=== PATIENT | female | born 1995 | race African-American/Black ===

== ENCOUNTER 2021-10-13 14:47 | Emergency (ER) | payer SELFPAY ==
[~2021-10-13] VITALS: Ht 157.5 cm; Wt 90.0 kg
[2021-10-13 15:46] VITALS: BP 156/89
[2021-10-13] MEDS ORDERED: diphenhydrAMINE HCL 25 MG CAPSULE PO ONE (17:00)
[2021-10-13] MEDS ORDERED: KETOROLAC 60 MG/2 ML VIAL. IM ONE (17:00)
[2021-10-13] MEDS ORDERED: predniSONE 10 MG TABLET PO ONE (17:00)
[2021-10-13] MEDS ORDERED: PROCHLORPERAZINE 10 MG/2 ML VIAL. IM ONE (17:00)
[2021-10-13] MEDS ORDERED: SUMA50TA3 PO (17:09)
[2021-10-13] MEDS ORDERED: ONDA4TAB12 PO (17:09)
--- NOTE | 2021-10-13 17:09 | PHYS DOC ---
Past Medical History Past Medical History: Migraines Past Surgical History: No Surgical History General Adult EDM: Chief Complaint: HEADACHE HPI: HPI: Patient is a 25 year old female with history of migraine headaches presenting to the ED today complaining of 7 out of 10 generalized migraine headache with nausea, symptoms began 4 days ago. Patient denies this being the worst headache in her life. She states her symptoms are consistent with her regular migraines. She states she has tried [id number] remedies including ibuprofen, naproxen, Tylenol and Benadryl with no relief. Review of Systems: Review of Systems: Constitutional: Denies fever or chills. [] Eyes: Denies change in visual acuity. [] HENT: Denies nasal congestion or sore throat. [] Respiratory: Denies cough or shortness of breath. [] Cardiovascular: Denies chest pain or edema. [] GI: Reports nausea. Denies abdominal pain, vomiting, bloody stools or diarrhea. [] : Denies dysuria. [] Musculoskeletal: Denies back pain or joint pain. [] Integument: Denies rash. [] Neurologic: Reports migraine headache, denies focal weakness or sensory changes. [] . [] Psychiatric: Denies depression or anxiety. [] Heart Score: C/O Chest Pain: N/A Risk Factors: Risk Factors: DM, Current or recent (<one month) smoker, HTN, HLP, family history of CAD, obesity. Risk Scores: Score 0 - 3: 2.5% MACE over next 6 weeks - Discharge Home Score 4 - 6: 20.3% MACE over next 6 weeks - Admit for Clinical Observation Score 7 - 10: 72.7% MACE over next 6 weeks - Early Invasive Strategies Current Medications: Current Medications Medications (Trade) Dose Ordered Sig/Amor Start Time Stop Time Status Last Admin Dose Admin Diphenhydramine HCl (Benadryl) 25 mg 1X ONCE 10/13/21 17:00 10/13/21 17:01 DC 10/13/21 16:45 25 MG Ketorolac Tromethamine (Toradol Im) 60 mg 1X ONCE 10/13/21 17:00 10/13/21 17:01 DC 10/13/21 16:45 60 MG Prednisone (Prednisone) 50 mg 1X ONCE 10/13/21 17:00 10/13/21 17:01 DC 10/13/21 16:45 50 MG Prochlorperazine Edisylate (Compazine) 10 mg 1X ONCE 10/13/21 17:00 10/13/21 17:01 DC 10/13/21 16:45 10 MG Allergies: Allergies: Allergies Coded Allergies Type Severity Reaction Last Updated Verified Penicillins Allergy Intermediate Unknown 10/13/21 Yes shellfish derived Allergy Intermediate Unknown 10/13/21 Yes Physical Exam: PE: Constitutional: Well developed, well nourished, no acute distress, non-toxic appearance. [] HENT: Normocephalic, atraumatic, bilateral external ears normal, oropharynx moist, no oral exudates, nose normal. [] Eyes: PERRLA, EOMI, conjunctiva normal, no discharge. [] Neck: Normal range of motion, no tenderness, supple, no stridor. [] Cardiovascular:Heart rate regular rhythm, no murmur [] Lungs & Thorax: Bilateral breath sounds clear to auscultation [] Abdomen: Bowel sounds normal, soft, no tenderness, no masses, no pulsatile masses. [] Skin: Warm, dry, no erythema, no rash. [] Back: No tenderness, no CVA tenderness. [] Extremities: No tenderness, no cyanosis, no clubbing, ROM intact, no edema. [] Neurologic: Alert and oriented X 3, normal motor function, normal sensory function, no focal deficits noted. Cranial nerves II through XII intact Psychologic: Affect normal, judgement normal, mood normal. [] Current Patient Data: Vital Signs: Vital Signs Date Time Temp Pulse Resp B/P (MAP) Pulse Ox O2 Delivery O2 Flow Rate FiO2 10/13/21 15:46 98.0 62 18 156/89 (111) 98 98.0 EKG: EKG: [] Radiology/Procedures: Radiology/Procedures: [] Course & Med Decision Making: Course & Med Decision Making Pertinent Labs and Imaging studies reviewed. (See chart for details) This a 25-year-old female patient presenting to the ED today with exacerbation of chronic migraines. There is nothing unusual about her migraine today. She is given migraine cocktail in the ED. Discharged with Imitrex and Zofran. Follow-up with neurologist and PCP. Angi Disclaimer: Angi Disclaimer: This electronic medical record was generated, in whole or in part, using a voice recognition dictation system. Departure Departure Impression: Primary Impression: Migraine Qualified Codes: G43.009 - Migraine without aura, not intractable, without status migrainosus Disposition: HOME / SELF CARE / HOMELESS Condition: STABLE Referrals: NO PCP (PCP) ANDREW JUAREZ MD follow up in one week Patient Instructions: Migraine Headache Additional Instructions: You were evaluated in the emergency room for migraine headache. Please follow- up with your primary care doctor or the provided neurologist in the next 7 days. Take the prescribed medications as needed for your symptoms Scripts Ondansetron (ONDANSETRON ODT) 4 Mg Tab.rapdis 1 TAB PO PRN Q6-8HRS, #16 TAB Prov: CASEY TOLENTINO APRN 10/13/21 Sumatriptan Succinate (IMITREX) 50 Mg Tablet 1 TAB PO UD, #9 TAB 1 Refill Take 1 tablet at the onset of your symptoms, repeat in 2 hours if symptoms persist, do not take more than 2 tablets in 24 hours Prov: CASEY TOLENTINO APRN 10/13/21 CAESY TOLENTINO APRN October 13, 2021 17:09
== END 2021-10-13 17:34 | disposition home or self-care (01) ==
LOC: ER 14:47
DX: G43.009 Migraine without aura, not intractable, without status migrainosus (principal); Z88.0 Allergy status to penicillin; Z91.018 Allergy to other foods
CPT/HCPCS: 96372; 99284; J0780; J1885; J7512; Q0163